=== PATIENT | male | born 1955 | race Caucasian/White ===

== ENCOUNTER 2020-10-07 08:05 | Emergency (ER) | payer OTHER ==
[~2020-10-07] VITALS: Ht 175.3 cm; Wt 86.2 kg
[~2020-10-07 08:05] MED LIST: CIPRO500 MG PO; FLAGYL500MG PO
== END 2020-10-07 09:31 | disposition home or self-care (01) ==
LOC: ER 08:05
DX: S33.5XXA Sprain of ligaments of lumbar spine, initial encounter (principal); M79.662 Pain in left lower leg; M79.661 Pain in right lower leg; X50.0XXA Overexertion from strenuous movement or load, initial encounter; Y93.F2 Activity, caregiving, lifting; Y92.017 Garden or yard in single-family (private) house as the place of occurrence of the external cause; Y99.8 Other external cause status